=== PATIENT | female | born 1995 | race Caucasian/White ===

== ENCOUNTER 2017-12-04 20:51 | Inpatient (IN) | payer OTHER ==
[2017-12-04 23:43] LABS: ADD UMIC YES; UR ASCORBIC ACID NEGATIVE (NEGATIVE); UR BACTERIA MANY /HPF (NONE SEEN); UR BILIRUBIN (Dip) NEGATIVE (NEGATIVE); UR BLOOD (Dip) 2+ mg/dL (NEGATIVE); UR CLARITY CLOUDY (CLEAR); UR COLOR YELLOW (YELLOW); UR GLUCOSE (Dip) NEGATIVE (NEGATIVE); UR KETONES (Dip) NEGATIVE (NEGATIVE); UR LEUKOCYTE ESTERASE (Dip) 3+ Leu/ul (NEGATIVE); UR NITRITE (Dip) NEGATIVE (NEGATIVE); UR RBC 7 /HPF (0-5); UR SPECIFIC GRAVITY (Dip) 1.006 (1.003-1.030); UR SQUAMOUS EPITHELIAL CELL MANY /HPF (FEW); UR TOTAL PROTEIN (Dip) 2+ mg/dl (NEGATIVE); UR UROBILINOGEN (Dip) NEGATIVE (NEGATIVE); UR WBC 38 /HPF (0-5)
[2017-12-05] MEDS: SOD CHLORIDE 0.9% 1,000 ML IV ×4 (01:00→23:28)
[2017-12-05] MEDS: ACETAMINOPHEN 325 MG TAB PO ×4 (02:18→23:49)
[2017-12-05] MEDS: CEFTRIAXONE 1 GM/50 ML (PMX) 50 ML IV (02:20)
[2017-12-05 02:54] LABS: ADD MAN DIFF? NO
[2017-12-05 02:56] LABS: BASOPHILS % 0.1 % (0.0-2.0); HEMATOCRIT 31.3 % (37.0-47.0); HEMOGLOBIN 11.3 g/dl (12.0-16.0); LYMPHOCYTES # 0.9 10^3/ul (0.8-2.9); LYMPHOCYTES % 8.5 % (15.0-51.0); MEAN CORPUSCULAR HEMOGLOBIN 32.6 pg (29.0-33.0); MEAN CORPUSCULAR HGB CONC 36.1 g/dl (32.0-37.0); MEAN CORPUSCULAR VOLUME 90.2 fl (82.0-101.0); MEAN PLATELET VOLUME 11.4 fl (7.4-10.4); MONOCYTE # 0.4 10^3/ul (0.3-0.9); MONOCYTES % 4.1 % (0.0-11.0); NEUTROPHIL # 8.9 10^3/ul (1.6-7.5); NEUTROPHILS % 86.8 % (39.0-77.0); PLATELET COUNT 140 10^3/UL (140-415); RED BLOOD COUNT 3.47 10^6/ul (4.20-5.40)
[2017-12-05 02:56] LABS: WHITE BLOOD COUNT 10.3 10^3/ul (4.8-10.8)
[2017-12-05 03:16] LABS: PROTIME 12.2 Sec (11.9-14.9)
[2017-12-05 04:18] LABS: HEPATITIS B SURFACE ANTIGEN NEGATIVE (NEGATIVE)
[2017-12-05 05:24] LABS: PARTIAL THROMBOPLASTIN TIME 31.9 Sec (25.0-35.0)
[2017-12-05] MEDS ORDERED: CEFTRIAXONE 1 GM/50 ML (PMX) 50 ML IVPB (08:00)
[2017-12-05 12:38] LABS: AMPHETAMINE/METHAMPHETAMINE Negative (NEGATIVE); BARBITURATES Negative (NEGATIVE); BENZODIAZEPINES Negative (NEGATIVE); CANNABINOIDS Negative (NEGATIVE); COCAINE Negative (NEGATIVE); OPIATES Negative (NEGATIVE)
[2017-12-05 15:19] LABS: RAPID PLASMA REAGIN NONREACTIVE (NR)
[2017-12-05] MEDS ORDERED: MINERAL OIL LIGHT 10 ML VIAL TOP (19:00)
[2017-12-05] MEDS ORDERED: MISOPROSTOL 200 MCG TAB PR (19:00)
[2017-12-05] MEDS ORDERED: morphine 10 MG INJ IM (19:00)
[2017-12-05] MEDS ORDERED: OXYTOCIN 30 UNITS/LR 500 ML IV (19:00)
[2017-12-05] MEDS ORDERED: HYDROCODONE/APAP (5/325) TAB PO (19:00)
[2017-12-05] MEDS ORDERED: CARBOPROST 250 MCG INJ IM (19:00)
[2017-12-05] MEDS ORDERED: LIDOCAINE 1% (MPF) 30 ML INJ INJ (19:00)
[2017-12-05] MEDS ORDERED: NA PHOSPHATE/BIPHOS 133 ML ENEMA PR (19:00)
[2017-12-05 19:43] LABS: HIV 1&2 ANTIBODY NEGATIVE (NEGATIVE)
[2017-12-05] MEDS: DINOPROSTONE 10 MG VAG SUPP VAG (20:22)
[2017-12-06] MEDS ORDERED: MINERAL OIL LIGHT 10 ML VIAL TOP (00:30)
[2017-12-06] MEDS: CEFTRIAXONE 1 GM/50 ML (PMX) 50 ML IVPB (01:55)
[2017-12-06] MEDS: BUTORPHANOL 2 MG INJ IV (02:42)
[2017-12-06] MEDS: IBUPROFEN 600 MG TAB PO ×4 (06:43→23:35)
[2017-12-06] MEDS: METHYLERGONOVINE 0.2 MG INJ IM (07:04)
[2017-12-06] MEDS: OXYTOCIN 30 UNITS/LR 500 ML IV ×2 (07:05→07:06)
[2017-12-06] MEDS ORDERED: DEXTROSE 5%-LR 1,000 ML IV (07:22)
[2017-12-06] MEDS ORDERED: LACTATED RINGER'S 1,000 ML IV* (07:22)
[2017-12-06] MEDS ORDERED: ONDANSETRON 4 MG INJ IV (07:30)
[2017-12-06] MEDS ORDERED: DIBUCAINE 1% 30 GM OINT PR (07:30)
[2017-12-06] MEDS ORDERED: METHYLERGONOVINE 0.2 MG INJ IM (07:30)
[2017-12-06] MEDS ORDERED: ZOLPIDEM 5 MG TAB PO (07:30)
[2017-12-06] MEDS ORDERED: DIPHENHYDRAMINE 50 MG INJ IV (07:30)
[2017-12-06] MEDS ORDERED: CARBOPROST 250 MCG INJ IM (07:30)
[2017-12-06] MEDS ORDERED: OXYTOCIN 30 UNITS/LR 500 ML IV (07:30)
[2017-12-06] MEDS ORDERED: MISOPROSTOL 200 MCG TAB PR (07:30)
[2017-12-06] MEDS: LANOLIN 7 GM TUBE TOP (09:37)
[2017-12-06] MEDS: OXYCODONE/ASPIRIN (4.88/325) TAB PO ×2 (09:37→20:12)
[2017-12-06] MEDS: WITCH HAZEL/GLYCERIN PAD PR (09:37)
[2017-12-06] MEDS: BENZOCAINE 20% 56 ML SPRAY TOP (09:37)
[2017-12-06] MEDS: SENNA/DOCUSATE NA (8.6MG/50MG) TAB PO (20:12)
[2017-12-07] MEDS: OXYCODONE/ASPIRIN (4.88/325) TAB PO ×3 (02:38→20:06)
[2017-12-07] MEDS: IBUPROFEN 600 MG TAB PO ×4 (05:40→23:38)
[2017-12-07 11:07] LABS: ADD MAN DIFF? NO
[2017-12-07 11:14] LABS: WHITE BLOOD COUNT 6.8 10^3/ul (4.8-10.8)
[2017-12-07 11:14] LABS: BASOPHILS % 0.1 % (0.0-2.0); EOSINOPHILS # 0.1 10^3/ul (0.0-0.5); EOSINOPHILS % 1.3 % (0.0-7.0); HEMATOCRIT 24.8 % (37.0-47.0); HEMOGLOBIN 8.4 g/dl (12.0-16.0); LYMPHOCYTES % 28.7 % (15.0-51.0); MEAN CORPUSCULAR HEMOGLOBIN 31.5 pg (29.0-33.0); MEAN CORPUSCULAR HGB CONC 33.9 g/dl (32.0-37.0); MEAN CORPUSCULAR VOLUME 92.9 fl (82.0-101.0); MEAN PLATELET VOLUME 11.6 fl (7.4-10.4); MONOCYTE # 0.3 10^3/ul (0.3-0.9); MONOCYTES % 4.2 % (0.0-11.0); NEUTROPHIL # 4.4 10^3/ul (1.6-7.5); PLATELET COUNT 119 10^3/UL (140-415); RED BLOOD COUNT 2.67 10^6/ul (4.20-5.40); RED CELL DISTRIBUTION WIDTH 12.4 % (11.5-14.5)
[2017-12-07 11:57] LABS: RUBELLA ANTIBODY - IGG 1.61 index; RUBELLA ANTIBODY - IGM <20.00 AU/mL
[2017-12-08] MEDS: IBUPROFEN 600 MG TAB PO ×2 (05:37→12:49)
[2017-12-08] MEDS: MEASLES,MUMPS,RUBELLA VACCINE INJ SC* (09:00)
[2017-12-08] MEDS: DIPHTH/TET/ACEL PERTUSS (ADULT) 0.5 ML VIAL IM* (09:00)
[2017-12-08] MEDS: ACETAMINOPHEN 325 MG TAB PO (10:15)
== END 2017-12-08 16:17 | disposition home or self-care (01) | DRG 775 ==
LOC: OBT 20:51 → PP1 12-06 08:56 → L-D 20:57 → PP1 12-06 17:40 → L-D 12-05 18:16
PROC: 10E0XZZ Delivery of Products of Conception, External Approach (ICD-10-PCS; principal; 2017-12-06)
DX: O80 Encounter for full-term uncomplicated delivery (principal); Z37.0 Single live birth; Z3A.39 39 weeks gestation of pregnancy
CPT/HCPCS: 62319; 76775; 76815; 76818; 80307; 81001; 85025; 85610; 85730; 86592; 86703; 86762; 86885; 86900; 86901; 87086; 87340; 90715

== ENCOUNTER 2018-06-03 14:31 | Emergency (ER) | payer OTHER ==
[2018-06-03 15:57] LABS: URINE BLOOD (Dip) POC Trace-intact (NEGATIVE); URINE GLUCOSE (Dip) POC Negative (NEGATIVE); URINE KETONES (Dip) POC Negative (NEGATIVE); URINE LEUKOCYTE EST (Dip) POC Negative (NEGATIVE); URINE NITRITE (Dip) POC Negative (NEGATIVE); URINE TOTAL PROTEIN POC Trace (NEGATIVE)
== END 2018-06-03 17:40 | disposition home or self-care (01) ==
LOC: FTE 14:31
DX: Z34.01 Encounter for supervision of normal first pregnancy, first trimester (principal); Z3A.01 Less than 8 weeks gestation of pregnancy
CPT/HCPCS: 76801; 81003; 81025; 84702; 99284-25

== ENCOUNTER 2018-06-23 16:22 | Day surgery (SDC) | payer OTHER ==
[~2018-06-23 16:22] MED LIST: DEXAMETHASONE 4 MG/ML 1 ML INJ; ONDANSETRON 4 MG INJ
[2018-06-23 20:44] LABS: ADD UMIC YES; UR ASCORBIC ACID NEGATIVE (NEGATIVE); UR BILIRUBIN (Dip) NEGATIVE (NEGATIVE); UR BLOOD (Dip) 3+ mg/dL (NEGATIVE); UR CLARITY SLIGHTLY CLOUDY (CLEAR); UR COLOR YELLOW (YELLOW); UR GLUCOSE (Dip) NEGATIVE (NEGATIVE); UR KETONES (Dip) NEGATIVE (NEGATIVE); UR LEUKOCYTE ESTERASE (Dip) TRACE Leu/ul (NEGATIVE); UR NITRITE (Dip) NEGATIVE (NEGATIVE); UR RBC > 182 /HPF (0-5); UR SPECIFIC GRAVITY (Dip) 1.011 (1.003-1.030); UR SQUAMOUS EPITHELIAL CELL FEW /HPF (FEW); UR TOTAL PROTEIN (Dip) 2+ mg/dl (NEGATIVE); UR UROBILINOGEN (Dip) NEGATIVE (NEGATIVE); UR WBC 101 /HPF (0-5)
[2018-06-23] MEDS: ACETAMINOPHEN 500 MG TAB PO (20:54)
[2018-06-23 21:35] LABS: ADD MAN DIFF? NO
[2018-06-23 21:37] LABS: WHITE BLOOD COUNT 7.7 10^3/ul (4.8-10.8)
[2018-06-23 21:37] LABS: BASOPHILS % 0.4 % (0.0-2.0); EOSINOPHILS # 0.1 10^3/ul (0.0-0.5); EOSINOPHILS % 1.4 % (0.0-7.0); HEMATOCRIT 35.7 % (37.0-47.0); HEMOGLOBIN 12.3 g/dl (12.0-16.0); LYMPHOCYTES # 2.2 10^3/ul (0.8-2.9); LYMPHOCYTES % 28.6 % (15.0-51.0); MEAN CORPUSCULAR HEMOGLOBIN 30.8 pg (29.0-33.0); MEAN CORPUSCULAR HGB CONC 34.5 g/dl (32.0-37.0); MEAN CORPUSCULAR VOLUME 89.3 fl (82.0-101.0); MEAN PLATELET VOLUME 10.6 fl (7.4-10.4); MONOCYTE # 0.4 10^3/ul (0.3-0.9); MONOCYTES % 4.8 % (0.0-11.0); NEUTROPHILS % 64.4 % (39.0-77.0); PLATELET COUNT 213 10^3/UL (140-415); RED CELL DISTRIBUTION WIDTH 12.3 % (11.5-14.5)
[2018-06-23] MEDS ORDERED: PROPOFOL 100 ML (22:52)
[2018-06-23] MEDS ORDERED: FENTAnyl 50 MCG/ML VIAL (22:53)
[2018-06-23] MEDS ORDERED: LABETALOL HCL 20MG INJ IV (23:30)
[2018-06-23] MEDS ORDERED: EPHEDrine SULFATE 50 MG/5 ML SYG IV (23:30)
[2018-06-23] MEDS ORDERED: OXYCODONE/ACETAMINOPHEN (5/325) TAB PO (23:30)
[2018-06-23] MEDS ORDERED: KETOROLAC 30 MG INJ IV (23:30)
[2018-06-23] MEDS ORDERED: DIPHENHYDRAMINE 50 MG INJ IV (23:30)
[2018-06-23] MEDS ORDERED: ALBUTEROL 0.083% (NEB) 2.5 MG/3 ML AMP HHN (23:30)
[2018-06-23] MEDS ORDERED: FENTAnyl 50 MCG/ML VIAL IV ×3 (23:30)
[2018-06-23] MEDS ORDERED: ONDANSETRON 4 MG INJ IV (23:30)
[2018-06-23] MEDS ORDERED: hydrALAzine 20 MG INJ IV (23:30)
[2018-06-23] MEDS ORDERED: MEPERIDINE 25 MG INJ (23:49)
[2018-06-24] MEDS: MEPERIDINE 25 MG INJ IV (00:21)
== END 2018-06-24 01:30 | disposition home or self-care (01) ==
LOC: SDS 06-24 01:30 → FTE 16:22 → SDS 22:41
DX: O46.91 Antepartum hemorrhage, unspecified, first trimester (principal); Z3A.09 9 weeks gestation of pregnancy; O03.1 Delayed or excessive hemorrhage following incomplete spontaneous abortion
CPT/HCPCS: 36415; 76801; 76817; 81001; 84702; 85025; 86900; 86901; 88305; 99285-25